=== PATIENT | female | born 1955 | race Caucasian/White ===

== ENCOUNTER 2023-03-02 12:41 | Emergency (ER) | payer MEDICARE, OTHER, SELFPAY ==
[2023-03-02 12:48] VITALS: BP 188/104; PULSE 98; RESP 18; TEMP 37.1; O2SAT 96; BMI 24.2
--- NOTE | 2023-03-02 13:11 | XR_ITS ---
[facility] [id number] Patient Name: MICHAEL SANCHEZ MRN: [id number] date: 1955 Sex: F Assigned Patient Location: ER Current Patient Location: ED.MAIN Accession/Order Number: [id number] Exam Date: 03/02/2023 13:33 Report Date: 03/02/2023 14:35 At the request of: EVIN YOUNG Procedure: XR knee LT 4V EXAM: XR knee LT 4V 03/02/2023 FINDINGS: Frontal, bilateral oblique, and lateral views for 4 views obtained. HISTORY: Fall COMPARISON: None. XR/XR knee LT 4V IMPRESSION: 1. Moderate tricompartmental arthritic changes predominantly involving the patellofemoral and medial joint compartments with slight varus deformity noted. No convincing evidence of acute fracture or dislocation. 2. Joint effusion. 3. Generalized osteopenia. 4. Atherosclerosis with peripheral vascular arterial disease Electronically authenticated by: BARBARA MACIAS Date: 03/02/2023 14:35
--- NOTE | 2023-03-02 13:14 | ED.LOWEXI1 ---
HPI - Extremity Injury (Lower) General Chief Complaint: Extremity Injury, Lower Stated Complaint: LEFT KNEE INJURY/FALL Time Seen by Provider: 03/02/23 13:09 Source: patient Mode of arrival: walk-in Limitations: physical limitation History of Present Illness HPI Narrative: patient is a 68-year-old female who presents to the emergency department for the evaluation of left knee pain after an injury yesterday. She states her left foot got caught in a hole in her yard and she twisted her left knee, falling on the leg. She complains of pain to the left anterior knee, she has had a previous arthroscopy of the left knee. She denies pain to the left hip or left ankle. She reports difficulty ambulating due to pain. No medications taken prior to arrival. She is on no blood thinners. Related Data Home Medications Medication Instructions Recorded Confirmed famotidine 20 mg tablet 20 mg PO Q24H 03/02/23 03/02/23 lisinopril 10 1 tab PO Q24H 03/02/23 03/02/23 mg-hydrochlorothiazide 12.5 mg tablet Previous Rx's Medication Instructions Recorded hydrocodone 5 mg-acetaminophen 325 1 tab PO Q6H PRN pain #12 tabs 03/02/23 mg tablet methylprednisolone 4 mg tablets in See Rx Instructions .Route 03/02/23 a dose pack (Medrol (Ramesh)) .COMPLEX #21 ea Allergies Allergy/AdvReac Type Severity Reaction Status Date / Time No Known Drug Allergies Allergy Verified 03/02/23 12:48 Review of Systems ROS Constitutional Denies: fever or chills Ears, nose, mouth, and throat Denies: throat pain or neck pain Cardiovascular Denies: chest pain Respiratory Denies: shortness of breath or cough Gastrointestinal Denies: nausea or vomiting Musculoskeletal Reports: extremity pain, extremity swelling, joint pain and limited range of motion; Denies: back pain or neck pain Integumentary/Breast Denies: rash Neurological Denies: headache Hematologic/Lymphatic Denies: easy bruising PFSH PFSH Social History Smoking status: Current every day smoker Exam Narrative Exam Narrative: Gen.: Awake, alert, in no distress Head: Normocephalic, atraumatic ENT: Moist mucous membranes Respiratory: No respiratory distress Extremities: Moves extremities equally, limited flexion and extension of the left knee with no ecchymosis or obvious deformity. Diffuse edema noted of the left anterior knee and diffusely tender to palpation. No laxity of the patella. No posterior left knee tenderness Psych: Normal mood and affect Neuro: No focal neuro deficit Skin: Warm, dry, intact Constitutional Vital Signs, click to edit/add: Last Vital Signs Temp 98.8 F 03/02/23 12:48 Pulse 98 H 03/02/23 12:48 Resp 18 03/02/23 12:48 BP 188/104 H 03/02/23 12:48 Pulse Ox 96 03/02/23 12:48 O2 Del Method Room Air 03/02/23 12:48 Course Vital Signs Vital signs: Vital Signs Temperature 98.8 F 03/02/23 12:48 Pulse Rate 98 H 03/02/23 12:48 Respiratory Rate 18 03/02/23 12:48 Blood Pressure 188/104 H 03/02/23 12:48 Pulse Oximetry 96 03/02/23 12:48 Oxygen Delivery Method Room Air 03/02/23 12:48 Temperature 98.8 F 03/02/23 12:48 Pulse Rate 98 H 03/02/23 12:48 Respiratory Rate 18 03/02/23 12:48 Blood Pressure 188/104 H 03/02/23 12:48 Pulse Oximetry 96 03/02/23 12:48 Oxygen Delivery Method Room Air 03/02/23 12:48 MDM - Extremity Injury (Lower) MDM Narrative Medical decision making narrative: patient medicated for pain, x-rays reviewed by the radiologist showing moderate arthritis but no acute fracture or dislocation. Patient does have a joint effusion noted on exam and x-ray. She was placed in an Buddy wrap, knee immobilizer. She has crutches at home. She is neurovascularly intact pre-and post hardware application. Rest, ice, elevate. [place] and Medrol Dosepak given for home. Follow-up with orthopedics and return to the Emergency Room if symptoms change or worsen. Medical Records Attestation: I reviewed the patient's medical records. Imaging Data XR knee: Attestation: I have reviewed the pertinent imaging results. Discharge Plan Discharge Chief Complaint: Extremity Injury, Lower Clinical Impression: Effusion of left knee joint, Left knee sprain Patient Disposition: Home, Self-Care Time of Disposition Decision: 14:28 Condition: Good Prescriptions / Home Meds: New hydrocodone-acetaminophen 5-325 mg tablet 1 tab PO Q6H PRN (Reason: pain) Qty: 12 0RF Rx Instructions: DX: M25.562 methylprednisolone [Medrol (Ramesh)] 4 mg tablets,dose pack See Rx Instructions .ROUTE .COMPLEX Qty: 21 0RF Rx Instructions: Taper as directed No Action famotidine 20 mg tablet 20 mg PO Q24H lisinopril-hydrochlorothiazide 10-12.5 mg tablet 1 tab PO Q24H Instructions: Knee Sprain (ED), How to Use an Elastic Bandage (ED), Swollen Knee Joint (ED) Additional Instructions: Follow up with Dr. Vanegas in 3-5 days Stand Alone Forms: Portal Instructions Referrals: Alex Vanegas DO [Physician] - As soon as possible Physician,Non-Staff, MD [Primary Care Provider] - 1 week Discharge Date/Time: 03/02/23 14:41
[2023-03-02] MEDS: HYDROCODONE/ACET 5-325 MG TABLET 1 TAB PO (13:29)
[2023-03-02 14:17] VITALS: BP 168/98; PULSE 60; RESP 18; O2SAT 96
== END 2023-03-02 14:41 | disposition home or self-care (01) ==
PROVIDERS: Emergency Provider Emergency Medicine
DX: S83.92XA Sprain of unspecified site of left knee, initial encounter (principal); M25.462 Effusion, left knee; F17.210 Nicotine dependence, cigarettes, uncomplicated; W18.39XA Other fall on same level, initial encounter; X50.1XXA Overexertion from prolonged static or awkward postures, initial encounter
CPT/HCPCS: 73564; 99283

== ENCOUNTER 2024-12-24 15:34 | Emergency (ER) | payer MEDICARE, OTHER, SELFPAY ==
[2024-12-24] VITALS (16 sets, daily range): BP systolic 130–151; BP diastolic 69–122; PULSE 92; TEMP 37.2; O2SAT 91–99; BMI 22.6
--- NOTE | 2024-12-24 15:46 | ED.GENADUL1 ---
HPI HPI - General Adult General Chief complaint: Allergic Reaction Stated complaint: VERY ITCHY, FEELS LIKE HER MOUTH IS SWELLING UP Time Seen by Provider: 12/24/24 15:42 Source: patient Mode of arrival: walk-in Limitations: no limitations History of Present Illness HPI narrative: 69-year-old female presents for swelling to her lips and her tongue as well as redness to her skin and itching. This started about 30 minutes ago. Earlier today she had been out in her garden but she did not take any new medications or use any new products. This has never happened to her before. Related Data Home Medications ?Medication ?Instructions ?Recorded ?Confirmed famotidine 20 mg tablet 20 mg PO Q24H 03/02/23 12/24/24 lisinopril 10 1 tab PO Q24H 03/02/23 03/02/23 mg-hydrochlorothiazide 12.5 mg tablet aspirin 81 mg tablet,delayed mg 12/24/24 release hydrochlorothiazide 25 mg tablet mg 12/24/24 lisinopril 40 mg tablet mg 12/24/24 omeprazole 40 mg capsule,delayed mg 12/24/24 release Previous Rx's ?Medication ?Instructions ?Recorded hydrocodone 5 mg-acetaminophen 325 1 tab PO Q6H PRN pain #12 tabs 03/02/23 mg tablet methylprednisolone 4 mg tablets in See Rx Instructions .Route 03/02/23 a dose pack (Medrol (Ramesh)) .COMPLEX #21 ea prednisone 10 mg tablet See Rx Instructions .Route 12/24/24 .COMPLEX #18 tabs Allergies Allergy/AdvReac Type Severity Reaction Status Date / Time No Known Drug Allergies Allergy Verified 12/24/24 15:42 Opioid HPI Opioid Management Most Recent Opioid Data: Last Pain Scale 6 03/02/23, 12:51 Review of Systems ROS Narrative A ten point review of systems is negative except as noted above. PFSH PFSH Social History Smoking status: Current every day smoker Little interest or pleasure in doing things: not at all Feeling down, depressed, or hopeless: not at all Exam Narrative Exam Narrative: Nurses note and vital signs reviewed and patient is not hypoxic. General: The patient appears in no acute respiratory distress Skin: Warm, dry, no pallor noted. There is uniform erythema over most areas of her skin Head: Normocephalic, atraumatic Eye: Normal conjunctiva, no drainage Ears, Nose, Mouth, and Throat: oral mucosa is moist. Nares patent. Upper lip is mildly swollen. Tongue is mildly swollen. She is handling her oral secretions well. Cardiovascular: Regular Rate and Rhythm Respiratory: Patient is in no distress, no accessory muscle use, lungs are clear to auscultation, no wheezing, rales or rhonchi Back: non-tender GI: Soft and nontender Musculoskeletal: The patient has no evidence of calf tenderness, no pitting edema, symmetrical pulses noted bilaterally Neurological: A&O, normal speech Psychiatric: Cooperative Constitutional Vital Signs, click to edit/add: Last Vital Signs Temp 98.9 F 12/24/24 15:40 Pulse 92 H 12/24/24 15:40 Resp 18 12/24/24 15:40 BP 130/69 12/24/24 15:58 Pulse Ox 91 L 12/24/24 16:50 O2 Del Method Room Air 12/24/24 15:49 Course Vital Signs Vital signs: Vital Signs Temperature 98.9 F 12/24/24 15:40 Pulse Rate 92 H 12/24/24 15:40 Respiratory Rate 18 12/24/24 15:40 Blood Pressure 151/122 H 12/24/24 15:40 Pulse Oximetry 99 12/24/24 15:40 Oxygen Delivery Method Room Air 12/24/24 15:40 Temperature 98.9 F 12/24/24 15:40 Pulse Rate 92 H 12/24/24 15:40 Respiratory Rate 18 12/24/24 15:40 Blood Pressure 130/69 12/24/24 15:58 Pulse Oximetry 91 L 12/24/24 16:50 Oxygen Delivery Method Room Air 12/24/24 15:49 Medical Decision Making MDM Narrative Medical decision making narrative: The patient presented with an allergic reaction of unknown origin. She was given IV Solu-Medrol and IV Benadryl and was observed here. The erythema of her skin has gone away and she is no longer having any pruritus. The swelling of her tongue is gone down slightly and she is comfortable going home and her daughter is comfortable with her going home as well. Treatment diagnosis and follow-up were discussed with the patient. Differential Diagnosis Differential Diagnosis: Allergic reaction Critical Care Time Critical Care Time Critical Care Time: Yes Total Critical Care Time: 35 Attestation: Due to the high probability of sudden and clinically significant deterioration in the patient's condition he/she required the highest level of my preparedness to intervene urgently I provided critical care time including documentation time, medication orders and management, reevaluation, vital sign assessment, ordering and reviewing of lab tests, ordering and reviewing of x-ray studies, and admission orders. Aggregate critical care time is 35 minutes including only time during which I was engaged in work directly related to his/her care and did not include time spent treating other patients simultaneously. Discharge Plan Discharge Chief Complaint: Allergic Reaction Clinical Impression: Allergic reaction Patient Disposition: Home, Self-Care Time of Disposition Decision: 17:32 Condition: Good Mode of Transportation: Private Vehicle Prescriptions / Home Meds: New prednisone 10 mg tablet See Rx Instructions .ROUTE .COMPLEX Qty: 18 0RF Rx Instructions: 3 by mouth daily for three days then 2 by mouth daily for three days then 1 by mouth daily for three days No Action famotidine 20 mg tablet 20 mg PO Q24H lisinopril-hydrochlorothiazide 10-12.5 mg tablet 1 tab PO Q24H hydrocodone-acetaminophen 5-325 mg tablet 1 tab PO Q6H PRN (Reason: pain) Qty: 12 0RF Rx Instructions: DX: M25.562 methylprednisolone [Medrol (Ramesh)] 4 mg tablets,dose pack See Rx Instructions .ROUTE .COMPLEX Qty: 21 0RF Rx Instructions: Taper as directed omeprazole 40 mg capsule,delayed release(DR/EC) aspirin 81 mg tablet,delayed release (DR/EC) hydrochlorothiazide 25 mg tablet lisinopril 40 mg tablet Print Language: Salvad[place] Instructions: General Allergic Reaction (ED) Additional Instructions: Take Benadryl for itching. Referrals: CAROLYNE SHIN [Primary Care Provider, PATIENT FINANCIAL COORDINATOR] - 1 week
[2024-12-24] MEDS: METHYLPREDNISOLONE SOD SUCC PF 125 MG/2 ML VIAL IVP (15:54)
[2024-12-24] MEDS: DIPHENHYDRAMINE HCL 50 MG/ML VIAL 25 MG IVP (15:54)
--- OUTSIDE RECORDS SUMMARY | 2024-12-24 15:58 | XMS_ITS | CCD ---
Author Organization [facility] Care Team Providers Care Body Masker Name Role Phone DR BIA GARDUNO Consulting DR BIA Gonzalez Attending Unavailable DR BIA GARDUNO Admitting Unavailable Giorgio Guerra Primary Care Physician MD Giorgio Guerra Attending Unavailable MD Giorgio Guerra Attending Unavailable MD Giorgio Guerra Attending Unavailable MD Giorgio Guerra Attending Unavailable GALILEO Cortez Attending Unavailable MD Giorgio Guerra Attending Unavailable MD Goirgio Guerra Attending Unavailable MD Giorgio Guerra Attending Unavailable MD Giorgio Guerra Referring Unavailable MD Giorgio Guerra Admitting Unavailable MD Giorgio Geurra Attending Unavailable Berto Townsend Attending Unavaila GALILEO Velasco Attending Unavailable MD Giorgio Guerra Attending Unavailable Allergies Allergy Classification Reported Allergen(s) Allergy Type Date of Onset Reaction(s) Facility (1 source) No Known Medication Allergies; Translations: [No Known Medication Allergies] Propensity to adverse reactions (disorder) [facility] Repository Medications Current Medications Medication Drug Class(es) Dates Sig (Normalized) Sig (Original) aspirin 81 mg delayed release oral tablet (3 sources) Platelet Aggregation Inhibitor, Nonsteroidal Anti-inflammatory Drug Start: 10-13-2022 take 1 tablet by mouth once daily aspirin 81 mg Oral EC Tab 81 mg = 1 tab(s), Oral, Daily, Refills(s) 0 Start Date: 10/13/22 Status: Ordered atorvastatin 10 mg oral tablet (3 sources) HMG-CoA Reductase Inhibitor Start: 03-06-2023 take 1 tablet by mouth once daily atorvastatin 10 mg Tab See Instructions, TAKE 1 TABLET BY MOUTH DAILY, # 90 tab(s), Refills(s) 0, Pharmacy: [facility] [id number], 164.5, , 10/13/22 9:48:00 EDT, Height/Length Dosing, 71.6, kg, 10/13/22 9:48:00 EDT, Weight Dosing Start Date: 03/06/23 Status: Ordered Start: 09-05-2022 End: 12-04-2022 take 1 tablet by mouth once daily atorvastatin 10 mg Tab 10 mg = 1 tab(s), Oral, Daily, X 90 day(s), # 90 tab(s), Refills(s) 0, Pharmacy: [facility] [id number] Start Date: 09/05/22 Stop Date: 12/04/22 Status: Ordered 24 hr buPROPion hydrochloride 150 mg extended release oral tablet (2 sources) Aminoketone Start: 08-24-2023 take 1 tablet by mouth every twenty-four hours Wellbutrin XL 150 mg/24 hours Tab-ER 150 mg = 1 tab(s), Oral, q24hr, # 90 tab(s), Refills(s) 0, [id number] 163, cm, 08/24/23 13:49:00 EDT, Height/Length Dosing, 65.3, kg, 08/24/23 13:49:00 EDT, Weight Dosing Start Date: 08/24/23 Status: Ordered famotidine 20 mg oral tablet (2 sources) Histamine-2 Receptor Antagonist Start: 08-22-2023 take 1 tablet by mouth twice daily famotidine 20 mg Tab See Instructions, TAKE 1 TABLET BY MOUTH TWICE A DAY, # 180 tab(s), Refills(s) 0, [id number], 164.5, cm, 10/13/22 9:48:00 EDT, Height/Length Dosing, 71.6, kg, 10/13/22 9:48:00 EDT, Weight Dosing Start Date: 08/22/23 Status: Ordered Start: 10-13-2022 take 1 tablet by amanda th twice daily Pepcid 20 mg Tab 20 mg = 1 tab(s), Oral, BID, # 180 tab(s), Refills(s) 0, Pharmacy: [facility]/pharmacy #[id number], 164.5, cm, 10/13/22 9:48:00 EDT, Height/Length Dosing, 71.6, kg, 10/13/22 9:48:00 EDT, Weight Dosing Start Date: 10/13/22 Status: Ordered hydroCHLOROthiazide 12.5 mg / lisinopril 20 mg oral tablet (3 sources) Thiazide Diuretic, Angiotensin Converting Enzyme Inhibitor Start: 08-24-2023 hydrochlorothiazide-lisinopr il 12.5 mg-20 mg Tab 2 tab(s), Oral, Daily, 180 tab(s), Refill(s) 1, [facility]/pharmacy #[id number], 163, cm, 08/24/23 13:49:00 EDT, Height/Length Dosing, 65.3, kg, 08/24/23 13:49:00 EDT, Weight Dosing Start Date: 08/24/23 Status: Ordered Start: 10-13-2022 End: 01-11-2023 hydrochlorothiazide-lisinopr il 12.5 mg-10 mg Tab 1 tab(s), Oral, Daily for 90 day(s), 90 tab(s), Refill(s) 0, [id number], 164.5, cm, 10/13/22 9:48:00 EDT, Height/Length Dosing, 71.6, kg, 10/13/22 9:48:00 EDT, Weight Dosing Start Date: 10/13/22 Stop Date: 01/11/23 Status: Ordered omeprazole 40 mg delayed release oral capsule (1 source) Proton Pump Inhibitor Start: 09-21-2023 take 1 capsule by mouth once daily omeprazole 40 mg Cap-DR 40 mg = 1 cap(s), Oral, Daily, # 90 cap(s), Refills(s) 0, Pharmacy: [facility]/pharmacy #[id number], 163, cm, 09/21/23 11:01:00 EDT, Height/Length Dosing, 64.9, kg, 09/21/23 11:01:00 EDT, Weight Dosing Start Date: 09/21/23 Status: Ordered Problems Active Problems Problem Classification Problem Date Documented Date Episodic/Chronic Administrative/socia l admission (2 sources) Stress 08-24-2023 Episodic Disorders of lipid metabolism (3 sources) Mixed hyperlipidemia 10-13-2022 Chronic Esophageal disorders (3 sources) Gastroesophageal reflux disease 09-05-2022 Chronic Essential hypertension (3 sources) Essential hypertension 10-13-2022 Chronic Other screening for suspected conditions (not mental disorders or infectious disease) (1 source) Stool DNA-based colorectal cancer screening positive 09-29-2023 Episodic Unclassified (3 sources) CONTACT W/AND (SUSP) EXPOS COVID-19; Translations: [CONTACT W/AND (SUSP) EXPOS COVID-19] Onset: 03-20-2021 Past or Other Problems Problem Classification Problem Date Documented Da te Episodic/Chronic Unclassified (1 source) CONTACT W/AND (SUSP) EXPOS COVID-19; Translations: [CONTACT W/AND (SUSP) EXPOS COVID-19] Onset: 03-15-2021 Results Test Name Value Interpretation Reference Range Facil ity Ambulatory Visit Summaryon 0 09-17-2024 Ambulatory Visit Summary Ambulatory Visit Summary MARILIA SANCHEZ :1955 Visit Date:09/17/2024 Ambulatory Visit Instructions Your Diagnosis Primary hypertension Positive colorectal cancer screening using Cologuard test Chronic GERD Stress Smoker BMI 24.0-24.9, adult Your Care Team Attending Physician - Giorgio Guerra MD Primary Care Physician - Giorgio Guerra MD This Is Your Medications List aspirin (aspirin 81 mg Oral EC Tab) atorvastatin (atorvastatin 10 mg Tab) famotidine (famotidine 20 mg Tab) hydrochlorothiazide (hydrochlorothiazide 25 mg Tab) lisinopril (lisinopril 40 mg Tab) omeprazole (omeprazole 40 mg Cap-DR) Procedures Performed Laminectomy (04/17/2019), Cholecystectomy, Hysterectomy. Discharge Vitals Temperature (Oral) 36.2 ???C Heart Rate (Peripheral) 90 Respiratory Rate 20 Blood Pressure 122/68 Height 163.0 cm Height 64 in Weight 65.6 kg Weight 144.623 lb BMI 24.69 What to do next Scheduled Follow-Up Appointments Monday 2:30 PM EST With: Where: [address] [address]- Monday 3:20 PM EST With: Giorgio Guerra MD Where: [address] [address]- Medications What How Much When Instructions Unchanged aspirin (aspirin 81 mg Oral EC Tab) 1 Tablets By Mouth Every day Unchanged atorvastatin (atorvastatin 10 mg Tab) See instructions TAKE 1 TABLET BY MOUTH EVERY DAY Unchanged famotidine (famotidine 20 mg Tab) See instructions TAKE 1 TABLET BY MOUTH TWICE A DAY Unchanged hydrochlorothiazide (hydrochlorothiazide 25 mg Tab) See instructions TAKE 1 TABLET BY MOUTH EVERY DAY Unchanged lisinopril (lisinopril 40 mg Tab) See instructions TAKE 1 TABLET BY MOUTH EVERY DAY Unchanged omeprazole (omeprazole 40 mg Cap-DR) See instructions TAKE 1 CAPSULE BY MOUTH EVERY DAY Allergies No Known Allergies No Known Medication Allergies Problems Ongoing - Any problem that you are currently receiving treatment for. Chronic GERD Mixed hyperlipidemia Positive colorectal cancer screening using Cologuard test Primary hypertension Smoker Stress Patient Survey You may receive a survey via text or e-mail asking about your office visit. Please share your experience with us by completing your survey. We appreciate your feedback and thank you for choosing us for your care. Normal [facility] Family Medicine Office/Clini c Noteon 09-17-2024 Family Medicine Office/Clinic Note Family Medicine Office/Clinic Note Chief Complaint The patient seeks management for her chronic conditions and stress, compounded by nicotine dependence. HPI Staff Please speak with patient about scheduling an AWV. Marilia is a 69 year old female presenting for 3 month follow up Patient is here for follow up on hypertension. How often are you checking your blood pressure? no What are your average readings? _ Do you have any of the following symptoms? Chest Pain? no Palpitations? no CALIX/SOB? no Headache? no Peripheral Edema? no Light Headedness? no She has sinuses going on now since Needs all refills everything History of Present Illness - The patient is a 69-year-old female presenting with the management of multiple chronic conditions. - Chronic conditions include GERD and primary hypertension. - Reports significant stress and nicotine dependence, further impacting her health. - Stress is influenced by her 's severe health conditions, including strokes and lung cancer. - Nicotine dependence is ongoing, with no indication of cessation efforts discussed. Review of Systems PHQ Score Initial Depression Screen Score: 0 SCORE Physical Exam Vitals & Measurements T: 36.2 ???C(Oral) HR: 90(Peripheral) RR: 20 BP: 122/68 SpO2: 99% HT: 64 in HT: 163.0 cm WT: 144.623 lb WT: 65.6 kg BMI: 24.69 General: alert, no acute distress ENMT: oral mucosa moist Cardiovascular: Regular rate and rhythm, normal peripheral perfusion Respiratory: Lungs clear to auscultation, respirations non labored Extremities: no deformity, no trauma Neurological: oriented x 4, level of consciousness appropriate for age, CN II-XII intact, motor strength equal & normal bilaterally, speech normal Abdomen: Soft, Non-tender, Non-distended, + Bowel sounds Assessment/Plan 1. Primary hypertension (I10: Essential (primary) hypertension) - Stable. - Continue on meds as before. Ordered: hydrochlorothiazide, 25 mg = 1 tab(s), Oral, Daily, # 90 tab(s), Refills(s) 0, Pharmacy: [facility]/pharmacy #[id number], 163, cm, 06/17/24 10:35:00 EST, Height/Length Dosing, 65.8, kg, 06/17/24 10:35:00 EST, Weight Dosing methylPREDNISolone, = 1 packet(s), Oral, As Directed, as directed on package labeling, X 6 day(s), # 21 tab(s), Refills(s) 0, Pharmacy: [facility]/pharmacy #[id number], 163, cm, 09/17/24 10:15:00 EDT, Height/Length Dosing, 65.6, kg, 09/17/24 10:15:00 EDT, Weight Dosing Body Mass Index (BMI) documented 3008F Depression Screening Negative 3352F Influenza immunization status assessed 1030F Medication list documented in medical record 1159F Most recent diastolic blood pressure <80 mm Hg 3078F Patient screen for fall risk: no falls in last year or 1 fall with no injury in last year 1101F Review of all meds by a prescribing practitioner or clinical pharmacist documented in EHR 1160F Screened for tobacco use AND received tobacco cessation intervention 4004F Systolic BP <130 mm Hg (Most Recent) 3074F 2. Positive colorectal cancer screening using Cologuard test (R19.5: Other fecal abnormalities) - Follow up with GI when the patient is able to. Ordered: hydrochlorothiazide, 25 mg = 1 tab(s), Oral, Daily, # 90 tab(s), Refills(s) 0, Pharmacy: [facility]/pharmacy #[id number], 163, cm, 06/17/24 10:35:00 EST, Height/Length Dosing, 65.8, kg, 06/17/24 10:35:00 EST, Weight Dosing methylPREDNISolone, = 1 packet(s), Oral, As Directed, as directed on package labeling, X 6 day(s), # 21 tab(s), Refills(s) 0, Pharmacy: [facility]/pharmacy #[id number], 163, cm, 09/17/24 10:15:00 EDT, Height/Length Dosing, 65.6, kg, 09/17/24 10:15:00 EDT, Weight Dosing Body Mass Index (BMI) documented 3008F Depression Screening Negative 3352F Influenza immunization status assessed 1030F Medication list documented in medical record 1159F Most recent diastolic blood pressure <80 mm Hg 3078F Patient screen for fall risk: no falls in last year or 1 fall with no injury in last year 1101F Review of all meds by a prescribing practitioner or clinical pharmacist documented in EHR 1160F Screened for tobacco use AND received tobacco cessation intervention 4004F Systolic BP <130 mm Hg (Most Recent) 3074F 3. Chronic GERD (K21.9: Gastro-esophageal reflux disease without esophagitis) - Well controlled. Ordered: hydrochlorothiazide, 25 mg = 1 tab(s), Oral, Daily, # 90 tab(s), Refills(s) 0, [id number], 163, cm, 06/17/24 10:35:00 EST, Height/Length Dosing, 65.8, kg, 06/17/24 10:35:00 EST, Weight Dosing methylPREDNISolone, = 1 packet(s), Oral, As Directed, as directed on package labeling, X 6 day(s), # 21 tab(s), Refills(s) 0, Pharmacy: [facility]/pharmacy #[id number], 163, cm, 09/17/24 10:15:00 EDT, Height/Length Dosing, 65.6, kg, 09/17/24 10:15:00 EDT, Weight Dosing Body Mass Index (BMI) documented 3008F Depression Screening Negative 3352F Influenza immunization status assessed 1030F Medication list documented in medical record 1159F Most recent diastolic blood pressure <80 mm Hg 3078F Patien (more content not included)... Normal [facility] Comment on above: Result Comment: Elec tronically Signed By: Giorgio Guerra MD\.br\Date and Time Signed: 09/17/24 10:49 EDT Provider Letteron 08-27-2024 Provider Letter Provider Letter August 27, 2024 MARILIA SANCHEZ [address] [place] [id number] : 1955 Dear Marilia, We have been trying to reach you with no success. It is important that you return our call regarding rescheduling your colonoscopy upon receiving this letter. Also, at the time of your call, please provide us with your current information. Thank you for your prompt attention to this matter. Sincerely, [facility] [phone] Normal [facility] Ambulatory Visit Summaryon 0 07-15-2024 Ambulatory Visit Summary Ambulatory Visit Summary MARILIA SANCHEZ :1955 Visit Date:07/15/2024 Ambulatory Visit Instructions Your Diagnosis Positive colorectal cancer screening using Cologuard test Chronic GERD Your Care Team Attending Physician - Cary HERRERA, Berto Urban Primary Care Physician - Giorgio Guerra MD This Is Your Medications List Contact prescribing physician if questions or concerns aspirin (aspirin 81 mg Oral EC Tab) atorvastatin (atorvastatin 10 mg Tab) famotidine (famotidine 20 mg Tab) hydrochlorothiazide (hydrochlorothiazide 25 mg Tab) lisinopril (lisinopril 40 mg Tab) omeprazole (omeprazole 40 mg Cap-DR) Procedures Performed Laminectomy (04/17/2019), Cholecystectomy, Hysterectomy. Discharge Vitals Heart Rate (Peripheral) 87 Blood Pressure 131/86 Height 64 in Height 163 cm Weight 145.505 lb Weight 66 kg BMI 24.84 What to do next Scheduled Follow-Up Appointments 2024 11:00 AM EDT With: Where: [address] [address]- Monday 10:00 AM EDT With: Giorgio Guerra MD Where: [address] [place] [address]- Medications What How Much When Why Instructions Unchanged aspirin (aspirin 81 mg Oral EC Tab) 1 Tablets By Mouth Every day Contact prescribing physician if questions or concerns Unchanged atorvastatin (atorvastatin 10 mg Tab) See instructions TAKE 1 TABLET BY MOUTH DAILY Contact prescribing physician if questions or concerns Unchanged famotidine (famotidine 20 mg Tab) 1 Tablets By Mouth 2 times a day Contact prescribing physician if questions or concerns Unchanged hydrochlorothiazide (hydrochlorothiazide 25 mg Tab) 1 Tablets By Mouth Every day Chronic GERD Mixed hyperlipidemia Primary hypertension Stress Positive colorectal cancer screening using Cologuard test Contact prescribing physician if questions or concerns Unchanged lisinopril (lisinopril 40 mg Tab) 1 Tablets By Mouth Every day Contact prescribing physician if questions or concerns Unchanged omeprazole (omeprazole 40 mg Cap-DR) See instructions TAKE 1 CAPSULE BY MOUTH EVERY DAY Contact prescribing physician if questions or concerns Allergies No Known Allergies No Known Medication Allergies Problems Ongoing - Any problem that you are currently receiving treatment for. Chronic GERD Mixed hyperlipidemia Positive colorectal cancer screening using Cologuard test Primary hypertension Smoker Stress Patient Survey You may receive a survey via text or e-mail asking about your office visit. Please share your experience with us by completing your survey. We appreciate your feedback and thank you for choosing us for your care. Normal [facility] Gastroenterology Office/Clin ic Noteon 07-15-2024 Gastroenterology Office/Clinic Note Gastroenterology Office/Clinic Note Chief Complaint Positive cologuard HPI Staff Patient is a(n) 69 year old female who was referred by Dr Nano Guerra for positive cologuard and GERD. Fhx colon cancer?? no Previous EGD/Colonoscopy?? no Denies n/v/c/d, abd pain, bloody or mucus stools. Blood thinners? Aspirin 81mg GLP-1 agonists? No Cologuard 09/19/23: Positive GERD: Patient states that symptoms improved since starting omeprazole. Improving/worsening factors: omeprazole- improved Treatment's tried: -Omeprazole (Prilosec) - yes -Pantoprazole (Protonix) - _ -Esomeprazole (Nexium) - _ -Lanosprazole (Prevacid) - _ -Dexlansoprazole (Dexilant) - _ -Rabeprazole (Aciphex) - _ -Famotidine (Pepcid) - yes -Vonoprazon (Voquezna) - _ History of Present Illness Reviewed HPI collected by staff Review of Systems PHQ Score Initial Depression Screen Score: 0 SCORE All systems reviewed, negative; Except for above Physical Exam Vitals & Measurements HR: 87(Peripheral) BP: 131/86 HT: 64 in HT: 163 cm WT: 145.505 lb WT: 66 kg BMI: 24.84 No acute distress Assessment/Plan 1. Positive colorectal cancer screening using Cologuard test (R19.5: Other fecal abnormalities) Cologuard 09/19/23: Positive Denies previous colonoscopy Denies Fhx of colon cancer Schedule Colonoscopy to evaluate. Discussed risks such as bleeding, injury and perforation as well as benefits. Patient agreeable. 2. Chronic GERD (K21.9: Gastro-esophageal reflux disease without esophagitis) Symptoms improved with Omeprazole Denies dysphagia and abdominal pain Will defer EGD for now since symptoms are currently well-controlled I, Savita Carranza, personally scribed for Berto Townsend on 07/15/2024 10:42:03. . Documentation recorded by Savita Carranza, accurately reflects the services I performed and decisions made by me. Berto Townsend MD Follow-up No qualifying data available Problem List/Past Medical History Ongoing Chronic GERD Mixed hyperlipidemia Positive colorectal cancer screening using Cologuard test Primary hypertension Smoker Stress Historical No qualifying data Procedure/Surgical History Laminectomy (04/17/2019), Cholecystectomy, Hysterectomy. Medications aspirin 81 mg Oral EC Tab, 81 mg= 1 tab(s), Oral, Daily atorvastatin 10 mg Tab, See Instructions famotidine 20 mg Tab, 20 mg= 1 tab(s), Oral, BID hydrochlorothiazide 25 mg Tab, 25 mg= 1 tab(s), Oral, Daily lisinopril 40 mg Tab, 40 mg= 1 tab(s), Oral, Daily omeprazole 40 mg Cap-DR, See Instructions Allergies No Known Allergies No Known Medication Allergies Social History Alcohol - Denies Alcohol Use, 09/05/2022 Substance Abuse - Denies Substance Abuse, 09/05/2022 Tobacco 10 or more cigarettes (1/2 pack or more)/day in last 30 days Tobacco Use:. Never Smokeless Tobacco Use:. Cigarettes, 1 per day. 27 year(s). Total pack years: 27. Started age 40.0 Years. Ready to change: No. Household tobacco concerns: No., 07/15/2024 Family History Family history is negative Immunizations Vaccine Date Status Comments influenza virus vaccine, inactivated 03/23/2022 Recorded SARS-CoV-2 (COVID-19) [id number] 03/23/2022 Recorded influenza virus vaccine, inactivated 02/10/2021 Recorded SARS-CoV-2 (COVID-19) mRNA-1273 vaccine 08/19/2020 Recorded 2022-10-04: [id number] SARS-CoV-2 (COVID-19) mRNA-[id number] vaccine 07/22/2020 Recorded 2022-10-04: [id number] influenza virus vaccine, inactivated 02/05/2020 Recorded influenza virus vaccine, inactivated 02/26/2019 Recorded influenza virus vaccine, inactivated 01/31/2018 Recorded influenza virus vaccine, inactivated 02/01/2017 Recorded influenza virus vaccine, inactivated 01/27/2016 Recorded influenza virus vaccine, inactivated 01/21/2015 Recorded influenza virus vaccine, inactivated 02/13/2014 Recorded Normal [facility] Comment on above: Result Comment: Elec tronically Signed By: Berto Townsend MD\.br\Date and Time Signed: 07/15/24 10:59 EDT\.br\Electronically Co-Signed By: Savita Carranza MA\.br\Date and Time Co-Signed: 07/15/24 10:52 EDT Family Medicine Office/Clini c Noteon 06-17-2024 Family Medicine Office/Clinic Note Family Medicine Office/Clinic Note Chief Complaint Difficulty managing medications leading to uncontrolled blood pressure and GERD symptoms; follow-up for positive colorectal cancer screening. HPI Staff 9m medication review Patient is here for follow up on hypertension. How often are you checking your blood pressure? Doesnt check BP at home What are your average readings? _ pt recall is around 140s Yearly BMP: None in chart BUN: 11 mg/dL (10/13/22 10:13:00) Calcium Lvl: 9.4 mg/dL (10/13/22 10:13:00) Chloride: 102 mmol/L (10/13/22 10:13:00) CO2: 30 mmol/L (10/13/22 10:13:00) Creatinine: 0.6 mg/dL (10/13/22 10:13:00) eGFR: 99 mL/min/1.73 m2 (10/13/22 10:13:00) Glucose Lvl: 115 mg/dL (10/13/22 10:13:00) Potassium Lvl: 4.4 mmol/L (10/13/22 10:13:00) Sodium Lvl: 138 mmol/L (10/13/22 10:13:00) Here for follow up on GERD. Melena? no Dysphagia? no Weight loss? no Persistent vomiting? no Have you ever had an EGD? no Refill needed?: _ Patient is here for follow up on hyperlipidemia: Do you have side effects from the medication? no Refill needed?: _ Yearly Lipid labs: Due Chol: 311 mg/dL High (10/13/22 10:13:00) HDL: 42 mg/dL (10/13/22 10:13:00) LDL Direct: 232 mg/dL High (10/13/22 10:13:00) Tri mg/dL High (10/13/22 10:13:00) VLDL: 46 mg/dL High (10/13/22 10:13:00) pt states doing well no refills needed at this time History of Present Illness The patient is a 69-year-old female presenting for management of medication regimen and uncontrolled primary hypertension. Recent blood pressure recordings have been significantly elevated despite ongoing treatment with lisinopril and hydrochlorothiazide. The patient has difficulties in medication adherence, contributing to uncontrolled hypertension. She also presents with chronic GERD, experiencing exacerbated symptoms under stress. Her previous treatment regimen includes alternating between omeprazole and famotidine, with the latter providing her notable relief from GERD symptoms. Notably, a recent positive Cologuard test for colorectal cancer screening has added to her stress with familial predispositions raising concern. Her stress levels have significantly increased due to personal family medical history and care, contributing to her overall clinical picture. Mixed hyperlipidemia persists as an issue, managed by atorvastatin, though there are concerns regarding medication adherence given recent confusion over dosages and blood pressure management. - Positive Cologuard colorectal cancer screening; referral to Gastroenterology for further evaluation and possible colonoscopy. - Smoking cessation encouragement due to current nicotine dependence. - Blood pressure monitoring and management with adjustments to antihypertensive regimen. - Mixed hyperlipidemia management with clarification of atorvastatin dosing schedule. - Discussion regarding lipid profile and cardiovascular risk management. - Stress management strategies owing to familial concerns. - Continued management of GERD and exploration of possible underlying causes or need for further evaluation. Review of Systems PHQ Score Initial Depression Screen Score: 0 SCORE Physical Exam Vitals & Measurements HR: 82(Peripheral) BP: 162/86 SpO2: 92% HT: 64 in HT: 163 cm WT: 65.8 kg WT: 145.064 lb BMI: 24.77 General: alert, no acute distress ENMT: oral mucosa moist Cardiovascular: Regular rate and rhythm, normal peripheral perfusion Respiratory: Lungs clear to auscultation, respirations non labored Extremities: no deformity, no trauma Neurological: oriented x 4, level of consciousness appropriate for age, CN II-XII intact, motor strength equal & normal bilaterally, speech normal Abdomen: Soft, Non-tender, Non-distended, + Bowel sounds, reports diarrhea and changes in bowel movements Assessment/Plan 1. Chronic GERD (K21.9: Gastro-esophageal reflux disease without esophagitis) GERD symptomatology worsens under stress. A switch to consistent famotidine usage should be trialed, with Gastroenterology consultation to consider upper scope if symptoms persist. Ordered: buPROPion, 150 mg = 1 tab(s), Oral, q24hr, # 90 tab(s), Refills(s) 0, Pharmacy: [facility]/pharmacy #[id number], 163, cm, 11/02/23 14:04:00 EDT, Height/Length Dosing, 64.6, kg, 11/02/23 14:04:00 EDT, Weight Dosing hydrochlorothiazide, 25 mg = 1 tab(s), Oral, Daily, # 90 tab(s), Refills(s) 0, Pharmacy: [facility]/pharmacy #[id number], 163, cm, 06/17/24 10:35:00 EST, Height/Length Dosing, 65.8, kg, 06/17/24 10:35:00 EST, Weight Dosing CT Chest, Low Dose Screening [facility] [place] Ambulatory Referral [place] Mamm Screen w/CAD if perf and 3D Satish 2. Mixed hyperlipidemia (E78.2: Mixed hyperlipidemia) Address atorvastatin dosing, moving towards once daily unless further contraindicated; further lipid panel assessments will guide continued hyperlipidemia management. Ordered: buPROPion, 150 mg = 1 tab(s), Oral, q24hr, # 90 tab(s), Refills(s) 0, [facility]acy: [id number] (more content not included)... Normal [facility] Comment on above: Result Comment: Elec tronically Signed By: Charlie HERRERA, Giorgio Ellison\.br\Date and Time Signed: 06/17/24 10:51 EST [place] [facility] [facility] Patient [place] [facility] November 06, 2023 MARILIA SANCHEZ [address] [place] [id number] : 1955 Our office has been trying reach you. When you receive this letter please give our office a call. Family Medicine [address] [address] [facility] Family Medicine Office/Clini c Noteon 11-02-2023 Family Medicine Office/Clinic Note Family Medicine Office/Clinic Note HPI Staff Marilia is a 68 year old female presenting for follow up ear infection and flush CARMEN LOM and impaction, tx with amoxicillin and methylprednisolone, to return for ear flush No ear pain, it's noisy right sounds like ocean waves, left one has some ringing in it that never stops. Still using the antbs, finished the steroids History of Present Illness pt presents today for ear irrigation. denies ear pain today, right has water sounds, left is ringing Physical Exam Vitals & Measurements T: 37.0 ?C(Temporal Artery) HR: 86(Peripheral) RR: 16 BP: 122/78 SpO2: 95% HT: 64 in HT: 163 cm WT: 64.6 kg WT: 142.12 lb BMI: 24.31 General: alert, no acute distress ENMT: oral mucosa moist, no pharyngeal erythema or exudate, right canal impacted, left TM full of clear fluid, left canal is pink Cardiovascular: regular rate and rhythm, normal peripheral perfusion Respiratory: Lungs CTA, respirations non labored Extremities: no deformity, no trauma Neurological: oriented x 4, LOC appropriate for age, CN II-XII intact, motor strength equal & normal bilaterally, speech normal Assessment/Plan 1. Impacted cerumen of right ear (H61.21: Impacted cerumen, right ear) pt has been using debrox. will irrigated right ear today. large amount of cerumen irrigated from right ear. pt states she is able to hear better out of it now. RTC as needed 2. Fluid level behind tympanic membrane of left ear (H65.92: Unspecified nonsuppurative otitis media, left ear) will give 40mg kenalog in office. pt encouraged to get zyrtec OTC and take it daily for 4 weeks 3. BMI 24.0-24.9, adult (Z68.24: Body mass index [BMI] 24.0-24.9, adult) BMI education given 4. Smoker (F17.200: Nicotine dependence, unspecified, uncomplicated) consider not smoking Follow-up No qualifying data available Problem List/Past Medical History Ongoing Chronic GERD Ear pain Fluid level behind tympanic membrane of left ear Impacted cerumen of right ear Left otitis media Mixed hyperlipidemia Positive colorectal cancer screening using Cologuard test Primary hypertension Stress Historical No qualifying data Procedure/Surgical History Laminectomy (04/17/2019), Cholecystectomy, Hysterectomy. Medications amoxicillin 500 mg Cap, 500 mg= 1 cap(s), Oral, q12hr aspirin 81 mg Oral EC Tab, 81 mg= 1 tab(s), Oral, Daily atorvastatin 10 mg Tab, See Instructions Lipitor 20 mg Tab, 20 mg= 1 tab(s), Oral, Daily omeprazole 40 mg Cap-DR, 40 mg= 1 cap(s), Oral, Daily Wellbutrin XL 150 mg/24 hours Tab-ER, 150 mg= 1 tab(s), Oral, q24hr Allergies No Known Allergies No Known Medication Allergies Social History Alcohol - Denies Alcohol Use, 09/05/2022 Substance Abuse - Denies Substance Abuse, 09/05/2022 Tobacco 10 or more cigarettes (1/2 pack or more)/day in last 30 days Tobacco Use:. Never Smokeless Tobacco Use:. Cigarettes, 1 per day. 27 year(s). Total pack years: 27. Started age 40.0 Years. Ready to change: No. Household tobacco concerns: No., 11/02/2023 Family History Family history is negative Immunizations Vaccine Date Status Comments influenza virus vaccine, inactivated 03/23/2022 Recorded SARS-CoV-2 (COVID-19) [id number] 03/23/2022 Recorded influenza virus vaccine, inactivated 02/10/2021 Recorded SARS-CoV-2 (COVID-19) mRNA-1273 vaccine 08/19/2020 Recorded 2022-10-04: [id number] SARS-CoV-2 (COVID-19) mRNA-1273 vaccine 07/22/2020 Recorded 2022-10-04: [id number] influenza virus vaccine, inactivated 02/05/2020 Recorded influenza virus vaccine, inactivated 02/26/2019 Recorded influenza virus vaccine, inactivated 01/31/2018 Recorded influenza virus vaccine, inactivated 02/01/2017 Recorded influenza virus vaccine, inactivated 01/27/2016 Recorded influenza virus vaccine, inactivated 01/21/2015 Recorded influenza virus vaccine, inactivated 02/13/2014 Recorded Normal [facility] Comment on above: Result Comment: Elec tronically Signed By: Wen Saucedo\.br\Date and Time Signed: 11/02/23 15:00 EDT Ambulatory Visit Summaryon 0 10-24-2023 Ambulatory Visit Summary Ambulatory Visit Summary MARILIA SANCHEZ :1955 Visit Date:10/24/2023 Ambulatory Visit Instructions Your Diagnosis Ear pain Left otitis media Impacted cerumen of right ear Your Care Team Attending Physician - Wen Saucedo Primary Care Physician - Giorgio Guerra MD This Is Your Medications List aspirin (aspirin 81 mg Oral EC Tab) atorvastatin (Lipitor 20 mg Tab) atorvastatin (atorvastatin 10 mg Tab) buPROPion (Wellbutrin XL 150 mg/24 hours Tab-ER) omeprazole (omeprazole 40 mg Cap-DR) Procedures Performed Laminectomy (04/17/2019), Cholecystectomy, Hysterectomy. Discharge Vitals Temperature (Temporal Artery) 37.0 ?C Heart Rate (Peripheral) 78 Respiratory Rate 18 Blood Pressure 128/84 Height 163 cm Height 64 in Weight 64.5 kg Weight 141.9 lb BMI 24.28 What to do next Scheduled Follow-Up Appointments 2023 10:15 AM EDT With: Giorgio Guerra MD Where: [facility] [place] [address] [place] [address]- \.br\ Medications\.br\ What How Much When Why Instructions\.br \ Unchanged aspirin (aspirin 81 mg Oral EC Tab) 1 Tablets By Mouth Every day\.br\ Unchanged atorvastatin (atorvastatin 10 mg Tab) See instructions TAKE 1 TABLET BY MOUTH DAILY \.br\ Unchanged atorvastatin (Lipitor 20 mg Tab) 1 Tablets By Mouth Every day\.br\ Unchanged buPROPion (Wellbutrin XL 150 mg/ 24 hours Tab-ER) 1 Tablets By Mouth Every 24 hours Chronic GERD Mixed hyperlipidemia Primary hypertension Stress\.br\ Unchanged omeprazole (omeprazole 40 mg Cap-DR) 1 Capsules By Mouth Every day\.br\ Allergies\.br\ No Known Allergies\.br\ No Known Medication Allergies\.br\ Problems\.br\ Ongoing - Any problem that you are currently receiving treatment for.\.br\ Chronic GERD\.br\ Ear pain\.br\ Impacted cerumen of right ear\.br\ Left otitis media\.br\ Mixed hyperlipidemia\. br\ Positive colorectal cancer screening using Cologuard test\.br\ Primary hypertension\.br \ Stress\.br\ Patient Survey\.br\ You may receive a survey via text or e-mail asking about your office visit. Please share your experience with us by completing your survey. We appreciate your feedback and thank you for choosing us for your care.\.br\ \.br\ [facility] BD Bone Density DEXAon 10-23 BD Bone Density DEXA Exam Date/Time: 10/23/2023 09:06 EDT Reason for Exam: E28.39;Post menopausal Report IMPRESSION: OSTEOPENIA. The 10 year probability (FRAX) of a major osteoporotic fracture based on the left femoral neck bone marrow density is: 9.3%, and hip fracture 1.8%. EXAM: BD Bone Density DEXA DATE: 10/23/2023 8:52 AM CLINICAL HISTORY: Post menopausal, E28.39. COMPARISON: None available. COMMENTS: The distal left forearm and both hips were scanned. Bone mineral density of the left femoral neck is 0.853 g/cm2 and this value is -1.3 standard of deviation below the standard reference value. Bone mineral density of the right femoral neck is 0.952 g/cm2 and this value is -0.6 standard of deviation below the standard reference value. Bone mineral density left radius 33% is 0.933 g/cm2 and this value is 0.5 standard of deviation above the standard reference value. These values meet WHO criteria for osteopenia. RECOMMENDATIONS: 1. All patients should optimize her calcium and vitamin D intake. 2. Consider FDA-approved medical therapies in postmenopausal women and minimal age 50 years and older, based on the following: - hip or vertebral (clinical or morphometric) fracture. - T-score less than or equal to -2.5 at the femoral neck or spine after the appropriate evaluation to exclude secondary causes. - Low bone density (T score between -1.0 and -2.5 at the femoral neck or spine) and a 10 year probability of hip fracture greater than or equal to 3% or a 10-year probability of a major osteoporosis-related fracture greater than or equal to 20% based on FRAX calculation. - Clinician judgment and/or patient preferences may indicate treatment for palpable attenuation fracture probability is above or below these levels. - Further guidance on treatment can be found at the National Osteoporosis Foundation's website: bonesource.org Report 3. Patients with diagnosis of osteoporosis or high risk for fracture. There are irregular bone mineral density tests. For patients eligible for Medicare, routine testing is allowed once every 2 years. Testing frequency can be increased to 1 year for patient's history of rapidly progressing disease, those who are receiving or discontinuing medical therapy to restore bone mass or have additional risk factors. Ordering Provider: Giorgio Guerra FINAL REPORT Dictated: 10/24/2023 2:42 pm Álvaro Higuera MD Signed (Electronic Signature): 10/24/2023 2:42 pm Signed by: Álvaro Higuera MD Transcribed by: JANKI Technologist: SHERYL [facility] Family Medicine Office/Clini c Noteon 10-24-2023 Family Medicine Office/Clinic Note Family Medicine Office/Clinic Note HPI Staff Marilia is a 68 year old female presenting for left ear pain She thought it was because of air conditioner, Started 2 weeks ago Fevers: no Sinus congestion: no Sneezing: no Ear pain: discomfort, tingly if touched Ear itching, popping, fullness, ringing, muffled hearing: fullness, muffled hearing Ear drainage: no Swollen nodes: Sore throat: no Ear pain worse with chewing: not when chewing but when she opens her mouth Itching: no Difficulty hearing: no Has tried nothing to relieve the pain, just rides it out History of Present Illness pt c/o left ear pain Review of Systems PHQ Score Initial Depression Screen Score: 0 SCORE Physical Exam Vitals & Measurements T: 37.0 ?C(Temporal Artery) HR: 78(Peripheral) RR: 18 BP: 128/84 SpO2: 96% HT: 64 in HT: 163 cm WT: 64.5 kg WT: 141.9 lb BMI: 24.28 General: alert, no acute distress ENMT: oral mucosa moist, no pharyngeal erythema or exudate, Left TM red and full of fluid, right ear canal impacted with cerumen Cardiovascular: regular rate and rhythm, normal peripheral perfusion Respiratory: Lungs CTA, respirations non labored Extremities: no deformity, no trauma Neurological: oriented x 4, LOC appropriate for age, CN II-XII intact, motor strength equal & normal bilaterally, speech normal Assessment/Plan 1. Left otitis media (H66.92: Otitis media, unspecified, left ear) left TM red and full of fluid. will order antibiotic and medrol dose pack. all questions answered. RTC for ear irrigation Ordered: amoxicillin, 500 mg = 1 cap(s), Oral, q12hr, # 20 cap(s), Refills(s) 0, Pharmacy: [facility]/pharmacy #[id number], 163, cm, 10/24/23 13:59:00 EDT, Height/Length Dosing, 64.5, kg, 10/24/23 13:59:00 EDT, Weight Dosing methylPREDNISolone, = 1 packet(s), Oral, As Directed, as directed on package labeling, X 6 day(s), # 21 tab(s), Refills(s) 0, Pharmacy: [facility]/pharmacy #[id number], 163, cm, 10/24/23 13:59:00 EDT, Height/Length Dosing, 64.5, kg, 10/24/23 13:59:00 EDT, Weight Dosing 2. Impacted cerumen of right ear (H61.21: Impacted cerumen, right ear) pt instructed to use debrox drops and return in 1-2 weeks for irrigation Ordered: amoxicillin, 500 mg = 1 cap(s), Oral, q12hr, # 20 cap(s), Refills(s) 0, [id number], cm, 10/24/23 13:59:00 EDT, Height/Length Dosing, 64.5, kg, 10/24/23 13:59:00 EDT, Weight Dosing methylPREDNISolone, = 1 packet(s), Oral, As Directed, as directed on package labeling, X 6 day(s), # 21 tab(s), Refills(s) 0, [id number], 163, cm, 10/24/23 13:59:00 EDT, Height/Length Dosing, 64.5, kg, 10/24/23 13:59:00 EDT, Weight Dosing 3. BMI 24.0-24.9, adult (Z68.24: Body mass index [BMI] 24.0-24.9, adult) BMI education given Ordered: amoxicillin, 500 mg = 1 cap(s), Oral, q12hr, # 20 cap(s), Refills(s) 0, [id number], 163, cm, 10/24/23 13:59:00 EDT, Height/Length Dosing, 64.5, kg, 10/24/23 13:59:00 EDT, Weight Dosing methylPREDNISolone, = 1 packet(s), Oral, As Directed, as directed on package labeling, X 6 day(s), # 21 tab(s), Refills(s) 0, [id number] 163, cm, 10/24/23 13:59:00 EDT, Height/Length Dosing, 64.5, kg, 10/24/23 13:59:00 EDT, Weight Dosing 4. Smoker (F17.200: Nicotine dependence, unspecified, uncomplicated) consider not smoking Ordered: amoxicillin, 500 mg = 1 cap(s), Oral, q12hr, # 20 cap(s), Refills(s) 0, [id number] 163, cm, 10/24/23 13:59:00 EDT, Height/Length Dosing, 64.5, kg, 10/24/23 13:59:00 EDT, Weight Dosing methylPREDNISolone, = 1 packet(s), Oral, As Directed, as directed on package labeling, X 6 day(s), # 21 tab(s), Refills(s) 0, Pharmacy: [facility]/pharmacy #[id number], 163, cm, 10/24/23 13:59:00 EDT, Height/Length Dosing, 64.5, kg, 10/24/23 13:59:00 EDT, Weight Dosing Follow-up No qualifying data available Problem List/Past Medical History Ongoing Chronic GERD Ear pain Impacted cerumen of right ear Left otitis media Mixed hyperlipidemia Positive colorectal cancer screening using Cologuard test Primary hypertension Stress Historical No qualifying data Procedure/Surgical History Laminectomy (04/17/2019), Cholecystectomy, Hysterectomy. Medications amoxicillin 500 mg Cap, 500 mg= 1 cap(s), Oral, q12hr aspirin 81 mg Oral EC Tab, 81 mg= 1 tab(s), Oral, Daily atorvastatin 10 mg Tab, See Instructions Lipitor 20 mg Tab, 20 mg= 1 tab(s), Oral, Daily Medrol 4 mg Tab, 1 packet(s), Oral, As Directed omeprazole 40 mg Cap-DR, 40 mg= 1 cap(s), Oral, Daily Wellbutrin XL 150 mg/24 hours Tab-ER, 150 mg= 1 tab(s), Oral, q24hr Allergies No Known Allergies No Known Medication Allergies Social History Alcohol - Denies Alcohol Use, 09/05/2022 Substance Abuse - Denies Substance Abuse, 09/05/2022 Tobacco 10 or more cigarettes (1/2 pack or more)/day in last 30 days Tobacco Use:. Never Smokeless Tobacco Use:. Cigarettes, 1 per day. 27 year(s). Total pack years: 27. Started age 40.0 Years. Ready to espinal (more content not included)... Normal [facility] Comment on above: Result Comment: Elec tronically Signed By: Wen Saucedo\.br\Date and Time Signed: 10/24/23 14:15 EDT MA Mamm Screen w/CAD if perf and 3D Bilon 10-24-2023 MA Mamm Screen w/CAD if perf and 3D Satish Exam Date/Time: 10/23/2023 08:48 EDT Reason for Exam: Z12.31;Screening Report IMPRESSION: BIRADS 1 NEGATIVE, NORMAL INTERVAL FOLLOW-UP.12 MONTH RECALL. CLINICAL HISTORY: Screening, Z12.31. COMPARISON: None. COMMENT: Routine views and tomosynthesis views of both breasts were obtained. There are scattered areas of fibroglandular density. No dominant breast mass nor neoplastic calcifications are identified in either breast. This is a baseline exam. The examination was reviewed with Computer Aided Detection. Breast Density: No Mammography is very important to your health. The current [employer] and National [employer] guidelines recommends annual mammography beginning at age 40. This facility utilizes a reminder system to ensure all patients receive reminder notifications at the appropriate time based on the recommendations of this exam. Board Certified Radiologists. Accredited by the ACR and FDA. Ordering Provider: Giorgio Guerra FINAL REPORT Dictated: 10/24/2023 2:36 pm Chris Vera M.D. Signed (Electronic Signature): 10/24/2023 2:36 pm Signed by: Chris Vera M.D. Transcribed by: JANKI Technologist: WENDY Assessment: BI-RADS Category 1-Negative Recommendation: Normal interval follow-up Normal [facility] Ambulatory Visit Summaryon 0 09-21-2023 Ambulatory Visit Summary MARILIA SANCHEZ :1955 Visit Date:09/21/2023 Ambulatory Visit Instructions Your Diagnosis Primary hypertension Chronic GERD Mixed hyperlipidemia BMI 24.0-24.9, adult Over weight Smoker Your Care Team Attending Physician - Giorgio Guerra MD Primary Care Physician - Giorgio Guerra MD This Is Your Medications List omeprazole (omeprazole 40 mg Cap-DR) Contact prescribing physician if questions or concerns aspirin (aspirin 81 mg Oral EC Tab) atorvastatin (atorvastatin 10 mg Tab) buPROPion (Wellbutrin XL 150 mg/24 hours Tab-ER) hydrochlorothiazide-l isinopril (hydrochlorothiazide- lisinopril 12.5 mg-20 mg Tab) [Image Removed: STOP]Stop taking these medications famotidine (famotidine 20 mg Tab) Procedures Performed Laminectomy (04/17/2019), Cholecystectomy, Hysterectomy. Discharge Vitals Temperature (Oral) 36.7 ?C Heart Rate (Peripheral) 78 Respiratory Rate 16 Blood Pressure 124/72 Height 163 cm Height 64 in Weight 64.9 kg Weight 142.78 lb BMI 24.43 What to do next Scheduled Follow-Up Appointments Monday 8:30 AM EDT With: Where: [facility] Monday 9:00 AM EDT With: Where: [facility] 2023 10:15 AM EDT With: Charlie HERRERA, Giorgio Ellison Where: [facility] [address] [place] [address]- \.br\ Medications\.br\ What How Much When Why Instructions\.br \ New omeprazole (omeprazole 40 mg Cap-DR) 1 Capsules By Mouth Every day Pickup at [facility]/pharmacy #[id number]\.br\ Unchanged aspirin (aspirin 81 mg Oral EC Tab) 1 Tablets By Mouth Every day Contact prescribing physician if questions or concerns \.br\ Unchanged atorvastatin (atorvastatin 10 mg Tab) See instructions TAKE 1 TABLET BY MOUTH DAILY Contact prescribing physician if questions or concerns \.br\ Unchanged buPROPion (Wellbutrin XL 150 mg/ 24 hours Tab-ER) 1 Tablets By Mouth Every 24 hours Chronic GERD Mixed hyperlipidemia Primary hypertension Stress Contact prescribing physician if questions or concerns \.br\ Unchanged hydrochlorothiaz pardeep-lisinopril (hydrochlorothia zide-lisinopril 12.5 mg-20 mg Tab) 2 Tablets By Mouth Every day Contact prescribing physician if questions or concerns \.br\ Pharmacy Information\.br\ [facility]/pharmacy #[id number]: [address], [place] [phone]\.br\ \.br\ What How Much When Comments\.br\ Stop Taking famotidine (famotidine 20 mg Tab) See instructions TAKE 1 TABLET BY MOUTH TWICE A DAY \.br\ Allergies\.br\ No Known Allergies\.br\ No Known Medication Allergies\.br\ Problems\.br\ Ongoing - Any problem that you are currently receiving treatment for.\.br\ Chronic GERD\.br\ Mixed hyperlipidemia\. br\ Primary hypertension\.br \ Stress\.br\ Patient Survey\.br\ You may receive a survey via text or e-mail asking about your office visit. Please share your experience with us by completing your survey. We appreciate your feedback and thank you for choosing us for your care.\.br\ Education Materials\.br\ Hypertension, Adult\.br\ High blood pressure (hypertension) is when the force of blood pumping through the arteries is too strong. The arteries are the blood vessels that carry blood from the heart throughout the body. Hypertension forces the heart to work harder to pump blood and may cause arteries to become narrow or stiff. Untreated or uncontrolled hypertension can lead to a heart attack, heart failure, a stroke, kidney disease, and other problems.\.br\ A blood pressure reading consists of a higher number over a lower number. Ideally, your blood pressure should be below 120/80. The first ( top ) number is called the systolic pressure. It is a measure of the pressure in your arteries as your heart beats. The second ( bottom ) number is called the diastolic pressure. It is a measure of the pressure in your arteries as the heart relaxes.\.br\ What are the causes?\.br\ The exact cause of this condition is not known. There are some conditions that result in high blood pressure.\.br\ What increases the risk?\.br\ Certain factors may make you more likely to develop high blood pressure. Some of these risk factors are under your control, including:\.br\ ? \.br\ Smoking.\.br\ ? \.br\ Not getting enough exercise or physical activity.\.br\ ? \.br\ Being overweight.\.br\ ? \.br\ Having too much fat, sugar, calories, or salt (sodium) in your diet.\.br\ ? \.br\ Drinking too much alcohol.\.br\ Other risk factors include:\.br\ ? \.br\ Having a personal history of heart disease, diabetes, high cholesterol, or kidney disease.\.br\ ? \.br\ Stress.\.br\ ? \.br\ Having a family history of high blood pressure and high cholesterol.\.br \ ? \.br\ Having obstructive sleep apnea.\.br\ ? \.br\ Age. The risk increases with age.\.br\ What are the signs or symptoms?\.br\ High blood pressure may not cause symptoms. Very high blood pressure (hypertensive crisis) may cause:\.br\ ? \.br\ Headache.\.br\ ? \.br\ Fast or irregular heartbeats (palpitations).\ .br\ ? \.br\ Shortness of breath.\.br\ ? \.br\ Nosebleed.\.br\ ? \.br\ Nausea and vomiting.\.br\ ? \.br\ Vision changes.\.br\ ? \.br\ Severe chest pain, dizziness, and seizures.\.br\ How is this diagnosed?\.br\ This condition is diagnosed by measuring your blood pressure while you are seated, with your arm resting on a flat surface, your legs uncrossed, and your feet flat on the floor. The cuff of the blood pressure monitor will be placed directly against the skin of your upper arm at the level of your heart. Blood pressure should be measured at least twice using the same arm. Certain conditions can cause a difference in blood pressure between your right and left arms.\.br\ If you have a high blood pressure reading during one visit or you have normal blood pressure with other risk factors, you may be asked to:\.br\ ? \.br\ Return on a different day to have your blood pressure checked again.\.br\ ? \.br\ Monitor your blood pressure at home for 1 week or longer.\.br\ If you are diagnosed with hypertension, you may have other blood or imaging tests to help your health care provider understand your overall risk for other conditions.\.br\ How is this treated?\.br\ This condition is treated by making healthy lifestyle changes, such as eating healthy foods, exercising more, and reducing your alcohol intake. You may be referred for counseling on a healthy diet and physical activity.\.br\ Your health care provider may prescribe medicine if lifestyle changes are not enough to get your blood pressure under control and if:\.br\ ? \.br\ Your systolic blood pressure is above 130.\.br\ ? \.br\ Your diastolic blood pressure is above 80.\.br\ Your personal target blood pressure may vary depending on your medical conditions, your age, and other factors.\.br\ Follow these instructions at home:\.br\ Eating and drinking\.br\ \.br\ ? \.br\ Eat a diet that is high in fiber and potassium, and low in sodium, added sugar, and fat. An example of this eating plan is called the DASH diet. DASH stands for Dietary Approaches to Stop Hypertension. To eat this way:\.br\ ? \.br\ Eat plenty of fresh fruits and vegetables. Try to fill one half of your plate at each meal with fruits and vegetables.\.br\ ? \.br\ Eat whole grains, such as whole-wheat pasta, brown rice, or whole-grain bread. Fill about one fourth of your plate with whole grains.\.br\ ? \.br\ Eat or drink low-fat dairy products, such as skim milk or low-fat yogurt.\.br\ ? \.br\ Avoid fatty cuts of meat, processed or cured meats, and poultry with skin. Fill about one fourth of your plate with lean proteins, such as fish, chicken without skin, beans, eggs, or tofu.\.br\ ? \.br\ Avoid pre-made and processed foods. These tend to be higher in sodium, added sugar, and fat.\.br\ ? \.br\ Reduce your daily sodium intake. Many people with hypertension should eat less than 1,500 mg of sodium a day.\.br\ ? \.br\ Do not drink alcohol if:\.br\ ? \.br\ Your health care provider tells you not to drink.\.br\ ? \.br\ You are , may be , or are planning to become .\.br\ ? \.br\ If you drink alcohol:\.br\ ? \.br\ Limit how much you have to:\.br\ ? \.br\ 0?1 drink a day for women.\.br\ ? \.br\ 0?2 drinks a day for men.\.br\ ? \.br\ Know how much alcohol is in your drink. In the [place] one drink equals one 12 oz bottle of beer (355 mL), one 5 oz glass of wine (148 mL), or one 1? oz glass of hard liquor (44 mL).\.br\ Lifestyle\.br\ \.br\ ? \.br\ Work with your health care provider to maintain a healthy body weight or to lose weight. Ask what an ideal weight is for you.\.br\ ? \.br\ Get at least 30 minutes of exercise that causes your heart to beat faster (aerobic exercise) most days of [facility] Family Medicine Office/Clini c Noteon 09-21-2023 Family Medicine Office/Clinic Note HPI Staff Marilia is a 68 year old female presenting for 3 month follow up htn Patient is here for follow up on hypertension. How often are you checking your blood pressure? Doesnt check BP at home What are your average readings? N/A, Not checking at home Yearly BMP: 10/13/22_ questions/concerns: none, feels better than her last visit here but still a queasy stomach a little bit yet didn't know if the famotidine might be upsetting her stomach although it helps the heartburn History of Present Illness - Here for follow up. - LDCT looks good. - Reviewed labs - No issues at this time. - Bps are better, Stress is better. Review of Systems PHQ Score Initial Depression Screen Score: 0 SCORE Physical Exam Vitals & Measurements T: 36.7 ?C(Oral) HR: 78(Peripheral) RR: 16 BP: 124/72 SpO2: 98% HT: 64 in HT: 163 cm WT: 64.9 kg WT: 142.78 lb BMI: 24.43 General: alert, no acute distress ENMT: oral mucosa moist, Cardiovascular: regular rate and rhythm, normal peripheral perfusion Respiratory: Lungs CTA, respirations non labored Extremities: no deformity, no trauma Neurological: oriented x 4, LOC appropriate for age, CN II-XII intact, motor strength equal & normal bilaterally, speech normal Abdomen: Soft, Nontender, Non-distended, + BS Assessment/Plan 1. Primary hypertension (I10: Essential (primary) hypertension) - BP is much better. - No longer stressing. - At goal today. - Meds with no issues. Ordered: Chronic Care Management ? Ambulatory Referral 2. Chronic GERD (K21.9: Gastro-esophageal reflux disease without esophagitis) - I believe this queasy feeling is likely GERD untreated. - Will start a PPI. - Follow up in 3 months Ordered: Chronic Care Management ? Ambulatory Referral 3. Mixed hyperlipidemia (E78.2: Mixed hyperlipidemia) - Labs will be done next month Ordered: Chronic Care Management ? Ambulatory Referral 4. BMI 24.0-24.9, adult (Z68.24: Body mass index [BMI] 24.0-24.9, adult) - BMI education given Ordered: Chronic Care Management ? Ambulatory Referral 5. Over weight (E66.3: Overweight) - Diet and exercise advised Ordered: Chronic Care Management ? Ambulatory Referral 6. Smoker (F17.200: Nicotine dependence, unspecified, uncomplicated) - Please stop smoking. - If you need help let us know. Orders: omeprazole, 40 mg = 1 cap(s), Oral, Daily, # 90 cap(s), Refills(s) 0, Pharmacy: [facility]/pharmacy #[id number], 163, cm, 09/21/23 11:01:00 EDT, Height/Length Dosing, 64.9, kg, 09/21/23 11:01:00 EDT, Weight Dosing Follow-up No qualifying data available Patient Education Hypertension, Adult Problem List/Past Medical History Ongoing Chronic GERD Mixed hyperlipidemia Primary hypertension Stress Historical No qualifying data Procedure/Surgical History Laminectomy (04/17/2019), Cholecystectomy, Hysterectomy. Medications aspirin 81 mg Oral EC Tab, 81 mg= 1 tab(s), Oral, Daily atorvastatin 10 mg Tab, See Instructions hydrochlorothiazide-l isinopril 12.5 mg-20 mg Tab, 2 tab(s), Oral, Daily, 1 refills omeprazole 40 mg Cap-DR, 40 mg= 1 cap(s), Oral, Daily Wellbutrin XL 150 mg/24 hours Tab-ER, 150 mg= 1 tab(s), Oral, q24hr Allergies No Known Allergies No Known Medication Allergies Social History Alcohol - Denies Alcohol Use, 09/05/2022 Substance Abuse - Denies Substance Abuse, 09/05/2022 Tobacco 10 or more cigarettes (1/2 pack or more)/day in last 30 days Tobacco Use:. Never Smokeless Tobacco Use:. Cigarettes, 1 per day. 28 year(s). Total pack years: 27. Started age 40.0 Years. Ready to change: No. Household tobacco concerns: No., 09/21/2023 Family History Family history is negative Immunizations Vaccine Date Status Comments influenza virus vaccine, inactivated 03/23/2022 Recorded SARS-CoV-2 (COVID-19) [id number].[id number] 03/23/2022 Recorded influenza virus vaccine, inactivated 02/10/2021 Recorded SARS-CoV-2 (COVID-19) mRNA-1273 vaccine 08/19/2020 Recorded 2022-10-04: [id number] SARS-CoV-2 (COVID-19) mRNA-1273 vaccine 07/22/2020 Recorded 2022-10-04: [id number] influenza virus vaccine, inactivated 02/05/2020 Recorded influenza virus vaccine, inactivated 02/26/2019 Recorded influenza virus vaccine, inactivated 01/31/2018 Recorded influenza virus vaccine, inactivated 02/01/2017 Recorded influenza virus vaccine, inactivated 01/27/2016 Recorded influenza virus vaccine, inactivated 01/21/2015 Recorded influenza virus vaccine, inactivated 02/13/2014 Recorded Normal [facility] Comment on above: Result Comment: Elec tronically Signed By: Charlie HERRERA, Giorgio Wharton.br\Date and Time Signed: 09/21/23 11:24 EDT Patient Educationon 09-21-19 Patient Education Cardiovascular Hypertension, Adult High blood pressure (hypertension) is when the force of blood pumping through the arteries is too strong. The arteries are the blood vessels that carry blood from the heart throughout the body. Hypertension forces the heart to work harder to pump blood and may cause arteries to become narrow or stiff. Untreated or uncontrolled hypertension can lead to a heart attack, heart failure, a stroke, kidney disease, and other problems. A blood pressure reading consists of a higher number over a lower number. Ideally, your blood pressure should be below 120/80. The first ( top ) number is called the systolic pressure. It is a measure of the pressure in your arteries as your heart beats. The second ( bottom ) number is called the diastolic pressure. It is a measure of the pressure in your arteries as the heart relaxes. What are the causes? The exact cause of this condition is not known. There are some conditions that result in high blood pressure. What increases the risk? Certain factors may make you more likely to develop high blood pressure. Some of these risk factors are under your control, including: ? Smoking. ? Not getting enough exercise or physical activity. ? Being overweight. ? Having too much fat, sugar, calories, or salt (sodium) in your diet. ? Drinking too much alcohol. Other risk factors include: ? Having a personal history of heart disease, diabetes, high cholesterol, or kidney disease. ? Stress. ? Having a family history of high blood pressure and high cholesterol. ? Having obstructive sleep apnea. ? Age. The risk increases with age. What are the signs or symptoms? High blood pressure may not cause symptoms. Very high blood pressure (hypertensive crisis) may cause: ? Headache. ? Fast or irregular heartbeats (palpitations). ? Shortness of breath. ? Nosebleed. ? Nausea and vomiting. ? Vision changes. ? Severe chest pain, dizziness, and seizures. How is this diagnosed? This condition is diagnosed by measuring your blood pressure while you are seated, with your arm resting on a flat surface, your legs uncrossed, and your feet flat on the floor. The cuff of the blood pressure monitor will be placed directly against the skin of your upper arm at the level of your heart. Blood pressure should be measured at least twice using the same arm. Certain conditions can cause a difference in blood pressure between your right and left arms. If you have a high blood pressure reading during one visit or you have normal blood pressure with other risk factors, you may be asked to: ? Return on a different day to have your blood pressure checked again. ? Monitor your blood pressure at home for 1 week or longer. If you are diagnosed with hypertension, you may have other blood or imaging tests to help your health care provider understand your overall risk for other conditions. How is this treated? This condition is treated by making healthy lifestyle changes, such as eating healthy foods, exercising more, and reducing your alcohol intake. You may be referred for counseling on a healthy diet and physical activity. Your health care provider may prescribe medicine if lifestyle changes are not enough to get your blood pressure under control and if: ? Your systolic blood pressure is above 130. ? Your diastolic blood pressure is above 80. Your personal target blood pressure may vary depending on your medical conditions, your age, and other factors. Follow these instructions at home: Eating and drinking ? Eat a diet that is high in fiber and potassium, and low in sodium, added sugar, and fat. An example of this eating plan is called the DASH diet. DASH stands for Dietary Approaches to Stop Hypertension. To eat this way: ? Eat plenty of fresh fruits and vegetables. Try to fill one half of your plate at each meal with fruits and vegetables. ? Eat whole grains, such as whole-wheat pasta, brown rice, or whole-grain bread. Fill about one fourth of your plate with whole grains. ? Eat or drink low-fat dairy products, such as skim milk or low-fat yogurt. ? Avoid fatty cuts of meat, processed or cured meats, and poultry with skin. Fill about one fourth of your plate with lean proteins, such as fish, chicken without skin, beans, eggs, or tofu. ? Avoid pre-made and processed foods. These tend to be higher in sodium, added sugar, and fat. ? Reduce your daily sodium intake. Many people with hypertension should eat less than 1,500 mg of sodium a day. ? Do not drink alcohol if: ? Your health care provider tells you not to drink. ? You are , may be , or are planning to become . ? If you drink alcohol: ? Limit how much you have to: ? 0?1 drink a day for women. ? 0?2 drinks a day for men. ? Know how much alcohol is in your drink. In the [place] one drink equals one 12 oz bottle of beer (355 mL), one 5 oz glass of wine (148 mL), or one 1? oz glass (more content not included)... Normal [facility] CHEMISTRYOrdered By: SYSTEM SYSTEM on 10-13-2022 Albumin [Mass/Vol] 4.1 g/dL Normal 3.3 - 5.0 gm/dL [facility] Remisol Albumin/Globulin [Mass ratio] 1.0 {ratio} Low 1.1 - 2.2 [facility] Rem[facility] ALP [Catalytic activity/Vol] 82 [iU]/d Normal 21 - 98 Int._Unit/L [facility] Rem[facility] ALT No additional P-5'-P [Catalytic activity/Vol] 13 [iU]/d Normal 6 - 46 Int._Unit/L [facility] Anion gap [Moles/Vol] 10 mmol/L Normal 6 - 16 mEq/L [facility] AST [Catalytic activity/Vol] 18 [iU]/d Normal 5 - 43 Int._Unit/L [facility] Bilirubin [Mass/Vol] 0.3 mg/dL Normal 0.0 - 1.1 mg/dL [facility] Calcium [Mass/Vol] 9.4 mg/dL Normal 8.9 - 11.1 mg/dL [facility] Chloride [Moles/Vol] 102 mmol/L Normal 101 - 111 mmol/ L [facility] Cholesterol [Mass/Vol] 311 mg/dL High 120 - 200 mg/dL [facility] Cholesterol in HDL [Mass/Vol] 42 mg/dL Invalid Interpretation Code [facility] Cholesterol in LDL [Mass/Vol] 232 mg/dL High <=129mg/dL [facility] Cholesterol in VLDL [Mass/Vol] 46 mg/dL High 7 - 40 mg/dL [facility] CO2 [Moles/Vol] 30 mmol/L Normal 21 - 31 mmol/L [facility] Creatinine [Mass/Vol] 0.6 mg/dL Normal 0.5 - 1.3 mg/dL [facility] GFR/1.73 sq M.predicted among non-blacks MDRD (S/P/Bld) [Vol rate/Area] 99 mL/min/1.73 m2 Normal >=59mL/min/1.73 m2 [facility] Chem S Globulin (S) [Mass/Vol] 3.9 g/dL Normal 1.4 - 4.0 gm/dL [facility] Glucose [Mass/Vol] 115 mg/dL Normal 55 - 199 mg/dL [facility] Potassium [Moles/Vol] 4.4 mmol/L Normal 3.5 - 5.3 mmol/L [facility] Protein [Mass/Vol] 8.0 g/dL High 6.0 - 7.8 gm/dL [facility] [place] Sodium [Moles/Vol] 138 mmol/L Normal 135 - 145 mmol/L [facility] Triglyceride [Mass/Vol] 232 mg/dL High <=149mg/dL [facility] Urea nitrogen [Mass/Vol] 11 mg/dL Normal 5 - 21 mg/dL [facility] Urea nitrogen/Creatinine [Mass ratio] 18 mg/mg Normal 10 - 20 [facility] HEMATOLOGYOrdered By: SYSTEM SYSTEM on 10-13-2022 Basophils/100 WBC (Bld) 0.4 % Normal 0.0 - 2.0 % [facility] HemeAutoSS Basophils/Leukocytes Auto (Bld) [Pure # fraction] 0.0 E9/L Normal 0.0 - 0.2 E9/L [facility] HemeAutoSS Eosinophils/100 WBC (Bld) 6.5 % Normal 0.0 - 8.0 % [facility] HemeAutoSS Eosinophils/Leukocyt es Auto (Bld) [Pure # fraction] 0.6 E9/L High 0.0 - 0.5 E9/L [facility] HemeAutoSS Lymphocytes/100 WBC (Bld) 29.4 % Normal 14.0 - 50.0 % [facility] HemeAutoSS Lymphocytes/Leukocyt es Auto (Bld) [Pure # fraction] 2.7 E9/L Normal 1.0 - 4.0 E9/L [facility] HemeAutoSS Monocytes/100 WBC (Bld) 9.1 % Normal 4.0 - 14.0 % [facility] HemeAutoSS Monocytes/Leukocytes Auto (Bld) [Pure # fraction] 0.8 E9/L Normal 0.2 - 1.0 E9/L [facility] HemeAutoSS Neutrophils/100 WBC (Bld) 54.6 % Normal 36.0 - 75.0 % [facility] HemeAutoSS Neutrophils/Leukocyt es Auto (Bld) [Pure # fraction] 5.0 E9/L Normal 2.0 - 7.5 E9/L [facility] HemeAutoSS HEMATOLOGYOrdered By: Therese Lombardo on 10-13-2022 Erythrocyte distribution width (RBC) [Ratio] 14.2 % Normal 10.9 - 14.2 % [facility] HemeAutoSS Hematocrit (Bld) [Volume fraction] 44.6 % Normal 34.0 - 46.0 % [facility] HemeAutoSS Hemoglobin (Bld) [Mass/Vol] 15.1 g/dL Normal 12.0 - 16.0 gm/dL [facility] HemeAutoSS MCH (RBC) [Entitic mass] 30.9 pg Normal 27.0 - 34.0 pg [facility] HemeAutoSS MCHC (RBC) [Mass/Vol] 33.7 g/dL Normal 31.4 - 36.0 gm/dL [facility] HemeAutoSS MCV (RBC) [Entitic vol] 91.5 fL Normal 80.0 - 100.0 fL [facility] HemeAutoSS Platelet mean volume (Bld) [Entitic vol] 9.7 fL Normal 6.4 - 10.8 fL [facility] HemeAutoSS Platelets (Bld) [#/Vol] 286.0 E9/L Normal 150.0 - 500.0 E9/L [facility] HemeAutoSS RBC (Bld) [#/Vol] 4.9 E12/L Normal 4.3 - 5.9 E12/L [facility] HemeAutoSS WBC corrected for nucl RBC Auto (Bld) [#/Vol] 9.2 E9/L Normal 4.0 - 11.0 E9/L [facility] HemeAutoSS Covid-19 PCR (CVDTBH)on 02-16 SARS-CoV-2 (COVID-19) RNA SARWAT+probe Ql (Unsp spec) Not detected Normal NOT DETECTED [facility] Comment on above: Result Comment: This test is not yet approved or cleared by the [place] FDA. When there are no FDA-approved or cleared tests available, and other criteria are met, FDA can make tests available under an emergency access mechanism called an Emergency Use Authorization (EUA). The EUA for this test is supported by the Senior Benefits Manager of Health and Human Service's (HHS's) declaration that circumstances exist to justify the emergency use of in vitro diagnostics for the detection and/or diagnosis of the virus that causes COVID-19. This EUA will remain in effect (meaning this test can be used) for the duration of the COVID-19 declaration justifying emergency of IVDs, unless it is terminated or revoked by FDA (after which the test may no longer be used). When diagnostic testing is negative, the possibility of a false negative should be considered in the context of a patient's recent exposures and the presence of clinical signs and symptoms consistent with SARS-CoV-2. Performed By: #### [facility] #### [facility] [address] [place] [address] Dr. Phoebe Barakat Encounters Encounter Date Encounter Type Care Provider Facility Start: 03-25-2025 ambulatory MD Giorgio Guerra [facility] ity:[facility] Start: 09-17-2024 End: 09-17-2024 ambulatory MD Giorgio Guerra Facility:[facility] Start: 08-22-2024 End: 08-22-2024 ambulatory MD Giorgio Guerra Facility:[facility] Start: 07-15-2024 End: 07-15-2024 ambulatory Berto Townsend Facility:[facility] Start: 06-19-2024 ambulatory MD Giorgio Guerra Facility :[facility] Start: 06-17-2024 End: 06-17-2024 ambulatory MD Giorgio Guerra Facility:[facility] Start: 12-21-2023 End: 12-21-2023 ambulatory MD Giorgio Guerra Facility:[facility] Start: 11-02-2023 End: 11-02-2023 ambulatory [employer] SUPER[employer] Wen L Dana Facility:[facility] [place] Start: 10-24-2023 End: 10-24-2023 ambulatory [employer] SUPER[employer] Wen Velázquez Dana Facility:[facility] [place] Start: 10-23-2023 ambulatory MD Giorgio Guerra Facil ity:[facility] Start: 10-23-2023 End: 10-23-2023 ambulatory MD Giorgio Guerra [place] Start: 10-23-2023 End: 10-23-2023 Patient encounter procedure Giorgio Guerra [facility] Start: 09-21-2023 End: 09-21-2023 ambulatory MD Giorgio Guerra Facility:[facility] Start: 09-07-2023 End: 09-07-2023 Patient encounter procedure Giorgio Guerra [facility] Start: 10-13-2022 End: 10-13-2022 Lab Drop off Giorgio Guerra [facility] Start: 03-15-2021 End: 03-15-[address] BIA GARDUNO Facility: Procedures Date Procedure Procedure Detail Performing Clinician Start: 04-17-2019 Laminectomy Giorgio cobb Cholecystectomy Giorgio Guerra Hysterectomy Giorgio Guerra Comment on above: Uterine cancer took one ovary Immunizations Immunization Date Immunization Notes Care Provider Fa cili 03-23-2022 influenza virus vaccine, unspecified formulation Giorgio Guerra [facility] 03-23-2022 SARS-CoV-2 (COVID-19 ) [id number].[id number] Giorgio Guerra [facility] 02-10-2021 influenza virus vaccine, unspecified formulation Giorgio Guerra [facility] 08-19-2020 SARS-CoV-2 (COVID-19 ) mRNA-1273 vaccine Giorgio Guerra [facility] Comment on above: Result Comment: 2022: [id number] 07-22-2020 SARS-CoV-2 (COVID-19 ) mRNA-1273 vaccine Giorgio Guerra [facility] Comment on above: Result Comment: 2022: [id number] 02-05-2020 influenza virus vaccine, unspecified formulation Giorgio Guerra [facility] 02-26-2019 influenza virus vaccine, unspecified formulation Giorgio Ross [facility] 01-31-2018 influenza virus vaccine, unspecified formulation Giorgio Guerra [facility] 02-01-2017 influenza virus vaccine, unspecified formulation Giorgio Guerra [facility] 01-27-2016 influenza virus vaccine, unspecified formulation Giorgio Guerra [facility] 01-21-2015 influenza virus vaccine, unspecified formulation Giorgio Guerra [facility] 02-13-2014 influenza virus vaccine, unspecified formulation Giorgio Guerra [facility] Payers Date Payer Category Payer Unknown [id number] 2021 Medicare [id number] 1958 Unknown [id number] 1955 Unknown [id number] 2.16.84 [id number] 1955 Unknown [id number] 2.16.8 [id number] 1956 Unknown [id number] 2.16.8 [id number] 1956 Unknown [id number] 2.16.8 [id number] 1956 Unknown [id number] 2.16.8 [id number] 1956 Unknown [id number] 2.16.8 [id number] 1956 Unknown [id number] 2.16.8 [id number] 1956 Unknown [id number] 2.16.8 [id number] 1956 Unknown [id number] 2.16.8 [id number] 1956 Unknown [id number] 2.16.8 [id number] 1956 Unknown [id number] 2.16.8 [id number] 1956 Unknown [id number] 2.16.8 [id number] 1956 Unknown [id number] 2.16.8 [id number] Social History Date Type Detail Facility Start: 10-13-2022 End: 09-21-2023 Tobacco smoking status Heavy tobacco smoker (finding) [facility] Tobacco smoking status Never [facility] Sex Assigned At Female [facility] Evaluation + Plan note Note Date & Type Note Facility Evaluation + Plan note Future Appointments Appointment Date:04/05/2023 01:20:00 PM Scheduled Provider:Giorgio Guerra MD Location:[facility] Appointment Type: Open Appointment Date:04/05/2023 02:00:00 PM Scheduled Provider: Location:[facility] Appointment Type: Medicare Wellness Subsequent [facility] Evaluation + Plan note LaboratoryRadiology Note Date & Type Note Facility Evaluation + Plan note Future Appointments Appointment Date:09/21/2023 10:45:00 AM Scheduled Provider:Giorgio Guerra MD [facility] Appointment Type: Open Appointment Date:10/23/2023 08:30:00 AM Scheduled Provider: Location[facility] Appointment Type:MA Screen () Appointment Date:10/23/2023 09:00:00 AM Scheduled Provider: [facility] App[facility] Type:BD Bone Density () Appointment Date:08/22/2024 11:00:00 AM Scheduled Provider: Location[facility] Appointment Type:FM Medicare Wellness Subsequent Future Scheduled TestsHCV Antibody RFX to Quant PCR 08/24/23Comprehensive Metabolic Panel 08/24/23Lipid Panel 08/24/23BD Bone Density DEXA 10/23/23MA Mamm Screen w/CAD if perf and 3D Satish 10/23/23 [facility] Evaluation + Plan note Laboratory Note Date & Type Note Facility Evaluation + Plan note Future Appointments Appointment Date:10/24/2023 01:40:00 PM Scheduled Provider:Wen Saucedo Location[facility] Appointment Type: Open Appointment Date:12/21/2023 10:15:00 AM Scheduled Provider:Giorgio Guerra MD Location[facility] Appointment Type: Open Appointment Date:08/22/2024 11:00:00 AM Scheduled Provider: Location[facility] Appointment Type:FM Medicare Wellness Subsequent Future Scheduled TestsHCV Antibody RFX to Quant PCR 08/24/23Comprehensive Metabolic Panel 08/24/23Lipid Panel 08/24/23 [facility] Hospital course Narrative Note Date & Type Note Facility Hospital course Narrative No data available for this section [facility] Hospital Discharge instructions Note Date & Type Note Facility Hospital Discharge instructions No data available for this section [facility] Progress note Note Date & Type Note Facility Progress note No data available for this section [facility] Summary Purpose Family History No Family History Records Found No data available for this section No data available for this section No Family History Records Found Advance Directives No Advanced Directives Records FoundNo Advanced Directives Records Found Additional Source Comments INFORMATION SOURCE (unrecogn ized section and content) DATE CREATED AUTHOR 03/21/2021 [facility] DATE CREATED AUTHOR AUTHOR'S ORGANIZ ATION 09/18/2024 Abilio Farnsworth [facility] Patient Care team informatio n (unrecognized section and content) Personnel Name: Giorgio Guerra MD Address: Address: [address] [place], [place] [address]y [address] Personnel Name: Giorgio Guerra MD Address: Address: [address] [place] [address] Personnel Name: Giorgio Guerra MD Address: Address: [address] [place] [address] FOR RECORDS PERTAINING TO PATIENTS WHO ARE OR HAVE BEEN ENROLLED IN A CHEMICAL DEPENDENCY/SUBSTANCEABUSE PROGRAM, SOME INFORMATION MAY BE OMITTED. This clinical summary was aggregated from multiple sources. Caution should be exercised in using it in the provision of clinical care. This summary normalizes information from multiple sources, and as a consequence, information in this document may materially change the coding, format and clinical context of patient data. In addition, data may be omitted in some cases. CLINICAL DECISIONS SHOULD BE BASED ON THE PRIMARY CLINICAL RECORDS. [employer] provides no warranty or guarantee of the accuracy or completeness of information in this document.
== END 2024-12-24 17:40 | disposition home or self-care (01) ==
PROVIDERS: Emergency Provider Emergency Medicine; PCP Nurse Practitioner
DX: T78.40XA Allergy, unspecified, initial encounter (principal); F17.200 Nicotine dependence, unspecified, uncomplicated
CPT/HCPCS: 96374; 96375; 99284; J1200; J2919